=== PATIENT | female | born 1980 | race Caucasian/White ===

== ENCOUNTER 2018-06-08 15:35 | Emergency (ER) | payer OTHER ==
[~2018-06-08] VITALS: Ht 99.1 cm; Wt 124.0 kg
[~2018-06-08 15:35] MED LIST: ACET-1025 PO; GABA-530 PO; ONDA4TAB12 PO; ORPH100T2 PO
[2018-06-08 15:46] VITALS: BP 148/101
[2018-06-08] MEDS ORDERED: CEPH500C5 PO (15:59)
[2018-06-08] MEDS ORDERED: SULF1TAB49 PO (15:59)
== END 2018-06-08 16:07 | disposition home or self-care (01) ==
LOC: ER 15:36
DX: B95.7 Other staphylococcus as the cause of diseases classified elsewhere (principal); L08.9 Local infection of the skin and subcutaneous tissue, unspecified; K21.9 Gastro-esophageal reflux disease without esophagitis; Z88.8 Allergy status to other drugs, medicaments and biological substances; Z79.899 Other long term (current) drug therapy; Z90.49 Acquired absence of other specified parts of digestive tract; Z98.890 Other specified postprocedural states
CPT/HCPCS: 99281

== ENCOUNTER 2018-08-18 20:14 | Emergency (ER) | payer OTHER ==
[~2018-08-18] VITALS: Ht 160 cm; Wt 130.0 kg
[~2018-08-18 20:14] MED LIST changes: +CEPH500C5 PO
[2018-08-18 23:05] VITALS: BP 144/93
[2018-08-18] MEDS ORDERED: IBUP-1984 PO (23:16)
== END 2018-08-18 23:25 | disposition home or self-care (01) ==
LOC: ER 20:15
DX: S00.83XA Contusion of other part of head, initial encounter (principal); K21.9 Gastro-esophageal reflux disease without esophagitis; Z90.49 Acquired absence of other specified parts of digestive tract; Z88.8 Allergy status to other drugs, medicaments and biological substances; Y04.8XXA Assault by other bodily force, initial encounter; Y93.89 Activity, other specified; Y92.89 Other specified places as the place of occurrence of the external cause; Y99.8 Other external cause status
CPT/HCPCS: 99282

== ENCOUNTER 2018-08-20 00:57 | Emergency (ER) | payer OTHER ==
[~2018-08-20] VITALS: Ht 160 cm; Wt 121.0 kg
[~2018-08-20 00:57] MED LIST changes: +IBUP-1984 PO
[2018-08-20 01:04] VITALS: BP 176/87
[2018-08-20] MEDS ORDERED: ketorolac trometh inj. 60 MG/2 ML VIAL IM ONE (02:40)
[2018-08-20] MEDS ORDERED: HYDR-569 PO (03:47)
== END 2018-08-20 04:10 | disposition home or self-care (01) ==
LOC: ER 00:58
DX: S00.83XA Contusion of other part of head, initial encounter (principal); K21.9 Gastro-esophageal reflux disease without esophagitis; Z90.49 Acquired absence of other specified parts of digestive tract; Z98.890 Other specified postprocedural states; Z88.8 Allergy status to other drugs, medicaments and biological substances; Z79.2 Long term (current) use of antibiotics; Z79.899 Other long term (current) drug therapy; X58.XXXA Exposure to other specified factors, initial encounter; Y93.89 Activity, other specified; Y92.89 Other specified places as the place of occurrence of the external cause; Y99.9 Unspecified external cause status
CPT/HCPCS: 70486; 96372; 99285; J1885

== ENCOUNTER 2018-10-24 09:18 | Outpatient (CLI) | payer OTHER ==
[~2018-10-24 09:18] MED LIST changes: +HYDR-4383 PO; -IBUP-1984 PO
[2018-10-24 10:06] LABS: BASOPHILS % (AUTO) 0.3 % (0-1); EOSINOPHILS # (AUTO) 0.5 X10'3 (0-0.9); EOSINOPHILS % (AUTO) 5.5 % (0-6); HEMATOCRIT 42.3 % (35.0-45.0); HEMOGLOBIN 14.3 g/dl (12.0-16.0); LYMPHOCYTES # (AUTO) 2.8 X10'3 (1.1-4.8); LYMPHOCYTES % (AUTO) 32.9 % (21-51); MEAN CORPUSCULAR HEMOGLOBIN 30.1 PG (27.0-31.0); MEAN CORPUSCULAR HGB CONC 33.8 % (33.0-36.5); MEAN CORPUSCULAR VOLUME 89.1 FL (78-98); MEAN PLATELET VOLUME 7.5 FL (7.4-10.4); MONOCYTES # (AUTO) 0.6 X10'3 (0-0.9); MONOCYTES % (AUTO) 6.6 % (2-12); NEUTROPHILS # (AUTO) 4.7 X10'3 (1.8-7.7); NEUTROPHILS % (AUTO) 54.7 % (42-75); PLATELET COUNT 244 X10'3 (140-440); RED BLOOD COUNT 4.75 X10'6 (4.20-5.60); RED CELL DISTRIBUTION WIDTH 13.2 % (11.5-14.5); WHITE BLOOD COUNT 8.6 X10'3 (4.5-11.0)
[2018-10-24 10:13] LABS: CLARITY,URINE CLOUDY (Clear); COLOR,URINE YELLOW (Yellow); GLUCOSE, URINE NEGATIVE (Neg); KETONES,URINE NEGATIVE (Neg); LEUKOCYTE ESTERASE ,URINE MODERATE (Neg); NITRITES, URINE NEGATIVE (Neg); OCCULT BLOOD,URINE TRACE-INTACT (Neg); PROTEIN,URINE NEGATIVE (Neg); UROBILINOGEN,URINE 0.2 E.U/dL (0.2-1.0)
[2018-10-24 10:26] LABS: SQUAMOUS EPITHELIAL CELL,UR MANY /LPF (FEW); UA COLLECTION TYPE CLN CATCH MIDSTREAM
[2018-10-24 10:27] LABS: MUCUS STRANDS NONE SEEN /LPF (Neg)
[2018-10-24 10:28] LABS: BACTERIA,URINE 4+ /HPF (Neg); RBC,URINE 0-2 /HPF (0-2); TRANSITIONAL EPI CELLS,URINE FEW /HPF; WBC,URINE 30-50 /HPF (0-4)
[2018-10-24 10:31] LABS: ALANINE AMINOTRANSFERASE 38 U/L (12-78); ALBUMIN 3.3 G/DL (3.4-5.0); ALBUMIN/GLOBULIN RATIO 0.8 (1.1-1.5); ALKALINE PHOSPHATASE 58 IU/L (46-116); ANION GAP 9 (8-16); ASPARTATE AMINO TRANSFERASE 44 U/L (10-37); BILIRUBIN,TOTAL 0.7 MG/DL (0.1-1.0); BLOOD UREA NITROGEN 6 MG/DL (7-18); BUN/CREATININE RATIO 8.5 (6.6-38.0); CALCIUM 8.6 MG/DL (8.5-10.1); CHLORIDE 101 MMOL/L (99-107); CHOL/HDL RATIO 9.2 (0.00-4.99); CHOLESTEROL 239 MG/DL (0-200); CREATININE 0.71 MG/DL (0.40-0.90); GLUCOSE 151 MG/DL (70-104); HDL CHOLESTEROL 26 MG/DL (35-60); LDL CHOLESTEROL 179 MG/DL (50-100); POTASSIUM 3.8 MMOL/L (3.5-5.1); SODIUM 137 MMOL/L (135-145); TOTAL CARBON DIOXIDE 26.7 MMOL/L (24-32); TOTAL PROTEIN 7.5 G/DL (6.4-8.2); TRIGLYCERIDES 224 MG/DL (20-135); eGFR > 90 ML/MIN
[2018-10-24 10:56] LABS: HIV ANTIBODY 1&2 RAPID NON-REACTIVE (Neg)
[2018-10-25 05:23] LABS: RPR Non Reactive (Non Reactive)
== END 2018-10-24 23:59 | disposition home or self-care (01) ==
LOC: LAB 09:18
PROVIDERS: ATTEND Family Medicine
DX: Z00.00 Encounter for general adult medical examination without abnormal findings (principal); Z88.8 Allergy status to other drugs, medicaments and biological substances
CPT/HCPCS: 36415; 80053; 80061; 81001; 83036; 84439; 84443; 85025; 86592; 86695; 86696; 86703; 87491

== ENCOUNTER 2019-02-08 08:04 | Emergency (ER) | payer OTHER ==
[~2019-02-08] VITALS: Ht 160 cm; Wt 121.8 kg
[2019-02-08 08:11] VITALS: BP 166/107
[2019-02-08] MEDS ORDERED: mupirocin 2% ointment 22GM TP STA (08:45)
[2019-02-08] MEDS ORDERED: CEPH-572 PO (08:47)
== END 2019-02-08 08:58 | disposition home or self-care (01) ==
LOC: ER 08:04
DX: H00.033 Abscess of eyelid right eye, unspecified eyelid (principal); K21.9 Gastro-esophageal reflux disease without esophagitis; Z90.49 Acquired absence of other specified parts of digestive tract; Z98.890 Other specified postprocedural states; Z88.8 Allergy status to other drugs, medicaments and biological substances; Z79.899 Other long term (current) drug therapy
CPT/HCPCS: 99283

== ENCOUNTER 2019-02-14 08:00 | Emergency (ER) | payer OTHER ==
[~2019-02-14] VITALS: Ht 160 cm; Wt 120.9 kg
[~2019-02-14 08:00] MED LIST changes: +CEPH-572 PO
[2019-02-14 08:09] VITALS: BP 138/80
[2019-02-14] MEDS ORDERED: SULF1TAB49 PO (09:33)
[2019-02-16] MEDS ORDERED: IBUP-1984 PO (17:20)
[2019-02-16] MEDS ORDERED: METF500T7 PO (17:20)
[2019-02-16] MEDS ORDERED: DULO60CA45 PO (17:20)
[2019-02-18] MEDS ORDERED: LINE600T36 CORPAK (08:55)
[2019-02-18] MEDS ORDERED: CLIN150C2 PO (11:51)
== END 2019-02-14 10:08 | disposition home or self-care (01) ==
LOC: ER 08:01
DX: H00.031 Abscess of right upper eyelid (principal); J34.0 Abscess, furuncle and carbuncle of nose; K21.9 Gastro-esophageal reflux disease without esophagitis; Z90.49 Acquired absence of other specified parts of digestive tract; Z98.890 Other specified postprocedural states; Z88.8 Allergy status to other drugs, medicaments and biological substances; Z79.899 Other long term (current) drug therapy
CPT/HCPCS: 99283; 99284

== ENCOUNTER 2019-02-16 11:53 | Inpatient (IN) | payer OTHER | END 2019-02-19 16:15 | disposition home or self-care (01) | LOC: ER 11:53 → ORTHO 4S 02-17 07:55 → ED HOLD 18:18 → ORTHO 4S 02-17 16:35 ==

== ENCOUNTER 2019-03-17 20:48 | Emergency (ER) | payer OTHER ==
[~2019-03-17] VITALS: Ht 160 cm; Wt 118.5 kg
[~2019-03-17 20:48] MED LIST changes: -ACET-1025 PO; -CEPH-572 PO; -CEPH500C5 PO; +CLIN150C2 PO; +DULO60CA45 PO; -GABA-530 PO; -HYDR-4383 PO; +IBUP-1984 PO; +METF500T7 PO; -ONDA4TAB12 PO; -ORPH100T2 PO
[2019-03-17] MEDS ORDERED: acetaminophen 325mg tablet PO ONE (21:20)
[2019-03-17] MEDS ORDERED: AMOX-101 PO (21:33)
[2019-03-17] MEDS ORDERED: amoxicillin 250mg capsule PO ONE (21:35)
[2019-03-17 22:14] VITALS: BP 131/79
== END 2019-03-17 22:18 | disposition home or self-care (01) ==
LOC: ER 20:48
DX: J02.9 Acute pharyngitis, unspecified (principal); R50.9 Fever, unspecified; R06.02 Shortness of breath; R53.1 Weakness; K21.9 Gastro-esophageal reflux disease without esophagitis; Z90.49 Acquired absence of other specified parts of digestive tract; Z98.890 Other specified postprocedural states; Z88.8 Allergy status to other drugs, medicaments and biological substances; Z79.84 Long term (current) use of oral hypoglycemic drugs; Z79.899 Other long term (current) drug therapy
CPT/HCPCS: 99283

== ENCOUNTER 2019-04-19 09:16 | Outpatient (CLI) | payer OTHER ==
[~2019-04-19 09:16] MED LIST changes: -CLIN150C2 PO
[2019-04-19 11:18] LABS: HIV ANTIBODY 1&2 RAPID NON-REACTIVE (Neg)
[2019-04-20 09:28] LABS: HEPATITIS C ANTIBODY <0.1 s/co ratio (0.0-0.9); RPR Non Reactive (Non Reactive)
== END 2019-04-19 23:59 | disposition home or self-care (01) ==
LOC: LAB 09:16
PROVIDERS: ATTEND Obstetrics & Gynecology
DX: Z01.419 Encounter for gynecological examination (general) (routine) without abnormal findings (principal)
CPT/HCPCS: 36415; 86592; 86695; 86696; 86703; 86803; 87491

== ENCOUNTER 2020-03-20 23:47 | Emergency (ER) | payer BC, OTHER ==
[~2020-03-20] VITALS: Ht 160 cm; Wt 127.0 kg
[~2020-03-20 23:47] MED LIST changes: +METF500T20 PO; -METF500T7 PO
[2020-03-21 01:20] VITALS: BP 155/94
--- NOTE | 2020-03-21 01:43 | NUR ---
LAB CALLED-INITIAL THROAT SWAB TEST CAME BACK INVALID AND ASKED TO RESWAB PT. NEW SAMPLE SENT DOWN.
== END 2020-03-21 02:18 | disposition home or self-care (01) ==
LOC: ER 23:48
DX: J02.9 Acute pharyngitis, unspecified (principal); K21.9 Gastro-esophageal reflux disease without esophagitis; Z90.49 Acquired absence of other specified parts of digestive tract; Z79.899 Other long term (current) drug therapy; Z98.890 Other specified postprocedural states; Z88.8 Allergy status to other drugs, medicaments and biological substances
CPT/HCPCS: 87081; 87880; 99283